=== PATIENT | female | born 1960 | race Two or more races ===

== ENCOUNTER 2020-06-12 13:47 | Emergency (ER) | payer MEDICARE, MEDICAID ==
[~2020-06-12] VITALS: Ht 170.2 cm; Wt 81.0 kg
[2020-06-12] MEDS ORDERED: HYDROCODONE/ACETAMINOPHEN 5/325MG TABLET PO STA (14:11)
[2020-06-12] MEDS ORDERED: IBUPROFEN 600MG TABLET PO STA (15:19)
[2020-06-12] MEDS ORDERED: IBUPROFEN 100MG/5ML UDC PO ONE (15:30)
[2020-06-12 16:15] VITALS: BP 115/72
== END 2020-06-12 16:38 | disposition home or self-care (01) ==
LOC: ER 13:47
DX: M54.5 Low back pain (principal); S80.02XA Contusion of left knee, initial encounter; M25.562 Pain in left knee; J45.909 Unspecified asthma, uncomplicated; E11.9 Type 2 diabetes mellitus without complications; W01.0XXA Fall on same level from slipping, tripping and stumbling without subsequent striking against object, initial encounter; Y93.89 Activity, other specified; Y92.513 Shop (commercial) as the place of occurrence of the external cause
CPT/HCPCS: 72100; 73562; 99284